=== PATIENT | male | born 1995 | race Caucasian/White ===

== ENCOUNTER 2018-07-11 00:06 | Emergency (ER) | payer OTHER ==
[2018-07-11 00:35] VITALS: BP 142/88; PULSE 76; TEMP 97.6; BMI 25.0
[2018-07-11] MEDS ORDERED: NAPROXEN 250 MG TABLET (FP) PO ONE (00:54)
[2018-07-11] MEDS ORDERED: CYCLOBENZAPRINE HCL 5 MG TABLET PO ONE (00:54)
[2018-07-11] MEDS ORDERED: NAPROXEN 500 MG TABLET (FP) ONE (00:57)
[2018-07-11] MEDS ORDERED: CYCLOBENZAPRINE HCL 10 MG TABLET (FP) ONE (00:58)
[2018-07-11] MEDS ORDERED: NAPROXEN 500 MG TABLET (FP) PO ONE (01:00)
[2018-07-11] MEDS ORDERED: CYCLOBENZAPRINE HCL 10 MG TABLET (FP) PO ONE (01:00)
--- NOTE | 2018-07-11 01:13 | PDOC ---
History of Present Illness - General Chief Complaint: Back Pain Stated Complaint: LOWER BACK PAIN Time Seen by Provider: 07/11/18 00:15 History Source: Patient Exam Limitations: No Limitations - History of Present Illness Initial Comments: 07/11/18 01:09 22 y/o male came to hospital because of pain in lower back which started after lifting weight in gym. pain radiates to right buttock, no numbness or tingling. Denies urine and fecal incontinence. Past History - Past Medical History Allergies/Adverse Reactions: Allergies Allergy/AdvReac Type Severity Reaction Status Date / Time No Known Allergies Allergy Verified 07/11/18 00:32 Home Medications: Ambulatory Orders Albuterol Sulfate Inhaler - [Ventolin HFA Inhaler -] 2 inh PO Q4H #1 inh Fexofenadine HCl [Merly] 180 mg PO DAILY #15 tablet 02/23/15 Ibuprofen [Motrin -] 600 mg PO Q6H PRN #18 tablet 02/23/15 Ketotifen Fumarate [Zaditor] 5 ml OU Q12H #1 drops 02/23/15 Cyclobenzaprine HCl [Flexeril -] 5 mg PO BID #7 tablet 07/11/18 Lidocaine 5% Patch [Lidoderm -] 1 patch TP DAILY #7 patch 07/11/18 Naproxen 250 mg PO BID #7 tablet 07/11/18 Asthma: Yes COPD: No - Immunization History Immunization Up to Date: Yes - Suicide/Smoking/Psychosocial Hx Smoking History: Never smoked Have you smoked in the past 12 months: No Information on smoking cessation initiated: No Hx Alcohol Use: No Drug/Substance Use Hx: No Substance Use Type: None *Physical Exam - Vital Signs Last Vital Signs Temp Pulse Resp BP Pulse Ox 97.6 F 76 20 142/88 99 07/11/18 00:10 07/11/18 00:10 07/11/18 00:10 07/11/18 00:10 07/11/18 00:10 - Physical Exam General Appearance: Yes: Appropriately Dressed Neck: positive: Supple. negative: Tender Respiratory/Chest: positive: Lungs Clear, Normal Breath Sounds, Respiratory Distress, Accessory Muscle Use Cardiovascular: positive: Regular Rhythm, Regular Rate Gastrointestinal/Abdominal: positive: Soft. 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, Fully Oriented, Normal Mood/Affect , Normal Response, Motor Strength 02/27 ED Treatment Course - RADIOLOGY Radiology Studies Ordered: Category Date Time Status SPINE-LUMBAR SACRAL [RAD] Stat Radiology 07/11/18 00:52 Ordered - Medications Given in the ED: ED Medications Discontinued Medications Generic Name Dose Route Start Last Admin Trade Name Gary PRN Reason Stop Dose Admin Cyclobenzaprine HCl 5 mg 07/11/18 01:00 07/11/18 01:00 Flexeril - PO 07/11/18 01:01 5 mg ONCE ONE Administration Naproxen 250 mg 07/11/18 01:00 07/11/18 01:00 Naprosyn - PO 07/11/18 01:01 250 mg ONCE ONE Administration Medical Decision Making - Medical Decision Making 07/11/18 01:33 22 y/o male came to hospital because of pain in lower back which started after lifting weight in gym. pain radiates to right buttock, no numbness or tingling. Denies urine and fecal incontinence. we will Xray spine' we will give him naproxen and flexril. 07/11/18 03:03 xray reviewed no fracture. we will dc him home. plan discussed with dr boyer. we will give him flexril, naproxen and lidocain patch. advise not to lift heavy weight. *DC/Admit/Observation/Transfer Diagnosis at time of Disposition: Back pain Qualifiers: Back pain location: low back pain Chronicity: acute Back pain laterality: right Sciatica presence: unspecified whether sciatica present Qualified Code(s) : M54.5 - Low back pain - Discharge Dispostion Disposition: HOME Condition at time of disposition: Stable Decision to Admit order: No - Prescriptions Prescriptions: Cyclobenzaprine HCl [Flexeril -] 5 mg PO BID #7 tablet Lidocaine 5% Patch [Lidoderm -] 1 patch TP DAILY #7 patch Naproxen 250 mg PO BID #7 tablet - Referrals Referrals: Dolores Parnell MD [Primary Care Provider] - - Patient Instructions Additional Instructions: follow up with your pcp. take medicines as prescribed. Avoid lifting heavy weight. If pain gets worse go to nearest er. - Post Discharge Activity
--- NOTE | 2018-07-11 02:29 | PDOC ---
Attending Attestation - Resident Resident Name: HarperCari dolanank - ED Attending Attestation I have performed the following: I have examined & evaluated the patient, The case was reviewed & discussed with the resident, I agree w/resident's findings & plan, Exceptions are as noted - HPI HPI: 07/11/18 00:46 22y M no pmhx presents with lower abck pain. pt ntose he was at the gym lifting when he had some mild lower back pain. pt took OTC meds and a lidoderm patch with mild improvement but presents due to still having mild discomfort. no associatd numbness/tingling/weakness urinary or bowel incontinence. no fever/ chills. on exam pt wll appaering, no distress, non toxic back: no focal midline tenderness, minimal paraspanal tendenress will ck xray anticipate dc with pmd fu - Physicial Exam PE: 07/11/18 22:15 louisa gastelum - Medical Decision Making 07/11/18 22:15 see above
== END 2018-07-11 03:14 | disposition home or self-care (01) ==
LOC: JER 00:06
DX: M54.5 Low back pain (principal)
CPT/HCPCS: 72100-TC-FY; 99283-25

== ENCOUNTER 2019-02-15 15:04 | Emergency (ER) | payer OTHER ==
[2019-02-15 15:11] VITALS: BP 141/99; PULSE 86; TEMP 98.4; BMI 26.6
--- NOTE | 2019-02-15 15:11 | PDOC ---
Rapid Medical Evaluation Chief Complaint: Respiratory Time Seen by Provider: 02/15/19 15:10 Medical Evaluation: Allergies Allergy/AdvReac Type Severity Reaction Status Date / Time No Known Allergies Allergy Verified 07/11/18 00:32 02/15/19 15:10 I did a brief in person evaluation on this patient. CC: Cough HPI: Pt is a 23 YO male who states he has had a cough x 3 days. PE: Skin: Clear Lungs: Clear Heart:RRR MS: Moves all extremities without difficulty Neuro: alert Psych: appropriate affect. Pt will proceed to [facility] for further evaluation. Discharge Disposition - Diagnosis Cough - Referrals - Patient Instructions - Post Discharge Activity
--- NOTE | 2019-02-15 15:28 | PDOC ---
History of Present Illness - General Chief Complaint: Respiratory Stated Complaint: COLD SYMPTOMS Time Seen by Provider: 02/15/19 15:10 - History of Present Illness Initial Comments: 02/15/19 15:26 23-year-old male without comorbidities presents for 3 days of nasal congestion itchy eyes and runny nose without systemic symptoms Past History - Past Medical History Allergies/Adverse Reactions: Allergies Allergy/AdvReac Type Severity Reaction Status Date / Time No Known Allergies Allergy Verified 07/11/18 00:32 Home Medications: Ambulatory Orders Fexofenadine HCl [Merly] 180 mg PO DAILY #15 tablet 02/23/15 Acetaminophen [Tylenol -] 650 mg PO Q4H 02/15/19 Budesonide [Rhinocort Allergy] 1 spray NS ONCE #1 spray.pump 02/15/19 Cetirizine HCl/Pseudoephedrine [Zyrtec-D Tablet] 1 each PO DAILY #30 tab.er.12h 02/15/19 Olopatadine HCl [Pataday] 1 drop OU DAILY #1 bottle 02/15/19 Asthma: Yes COPD: No - Immunization History Immunization Up to Date: Yes - Suicide/Smoking/Psychosocial Hx Smoking History: Never smoked Have you smoked in the past 12 months: No Hx Alcohol Use: No Drug/Substance Use Hx: No Substance Use Type: None Review of Systems - Review of Systems Constitutional: No: Fever HEENTM: Yes: See HPI, Nose Congestion Respiratory: Yes: Cough *Physical Exam - Vital Signs Last Vital Signs Temp Pulse Resp BP Pulse Ox 98.4 F 86 18 141/99 98 02/15/19 15:10 02/15/19 15:10 02/15/19 15:10 02/15/19 15:10 02/15/19 15:10 - Physical Exam Comments: 02/15/19 15:26 HEAD: NC/AT EYES: Conjuntiva clear Ears: Canals and TM's normal NOSE: No d/c THROAT: Moist mucous membrances, oral pharanx clear, uvula midline NECK: Supple without adenopathy CARDIAC: S1 S2 LUNGS: CTA Full and Equal breath sounds ABDOMEN: Soft NT ND MS: Full ROM in all joints without edema NEUROLOGIC: No gross sensory or motor deficits, NVID SKIN: Normal color and temperature no lesions or rashes Medical Decision Making - Medical Decision Making 02/15/19 15:27 We'll treat seasonal ALLERGIES with antihistamine decongestant, antihistamine eyedrops and steroid all nasal spray follow-up with ENT *DC/Admit/Observation/Transfer Diagnosis at time of Disposition: Cough, Allergic rhinitis, Allergic conjunctivitis - Discharge Dispostion Disposition: HOME Condition at time of disposition: Stable Decision to Admit order: No - Prescriptions Prescriptions: Budesonide [Rhinocort Allergy] 1 spray NS ONCE #1 spray.pump Cetirizine HCl/Pseudoephedrine [Zyrtec-D Tablet] 1 each PO DAILY #30 tab.er.12h Olopatadine HCl [Pataday] 1 drop OU DAILY #1 bottle - Referrals Referrals: Derrick Lee MD [Staff Physician] - - Patient Instructions Printed Discharge Instructions: Allergic Rhinitis Additional Instructions: Return to the emergency room for worsening symptoms. Please use the medication as directed and follow-up with ear nose and throat doctor in 1-2 days for further evaluation and treatment options. - Post Discharge Activity
== END 2019-02-15 15:33 | disposition home or self-care (01) ==
LOC: JERFT 15:04
DX: J30.9 Allergic rhinitis, unspecified (principal); H10.33 Unspecified acute conjunctivitis, bilateral
CPT/HCPCS: 99281-25

== ENCOUNTER 2019-06-25 11:56 | Day surgery (SDC) | payer OTHER ==
[2019-06-25 12:16] VITALS: BMI 24.2
--- NOTE | 2019-06-25 12:53 | PDOC ---
History of Present Illness - General Chief Complaint: Pain Stated Complaint: ABD PAIN Time Seen by Provider: 06/25/19 12:50 History Source: Patient Exam Limitations: No Limitations - History of Present Illness Initial Comments: Mani Canales is a 23 yo M w a hx of asthma and allergic rhinitis who presents to the [facility] ER with 2 days of RLQ abdominal pain. The patient states that yesterday at 10 am he began feeling a sharp sensation in his RLQ with mild radiation to his epigastric region. He rates the pain as 4 to 6 out of 10. The pain has not gotten worse since yesterday but the patient is concerned that he might have appendicitis. The pain is worse when the patient pushes on his lower abdomen, worse when he runs, and worse when he walks up stairs. He had a normal bowel movement yesterday. Patient states he has been peeing more frequently than usual and states he thinks his urine might have an abnormal odor. Patient has not taken any medications for his pain. Patient is sexually active with one female and does not use protection. He states he was tested for STD's 3 months ago which was negative. He states he has not had any new partners since. Patient denies any nausea, vomiting, diarrhea, or constipation. Patient denies any fevers or chills. PCP: Dolores Parnell PSH: None reported Social Hx: Denies smoking, drinking, or other substance usage. Allergies: Seasonal, NKDA Past History - Past Medical History Allergies/Adverse Reactions: Allergies Allergy/AdvReac Type Severity Reaction Status Date / Time No Known Allergies Allergy Verified 07/11/18 00:32 Home Medications: Ambulatory Orders Fexofenadine HCl [Merly] 180 mg PO DAILY #15 tablet 02/23/15 Acetaminophen [Tylenol -] 650 mg PO Q4H 02/15/19 Budesonide [Rhinocort Allergy] 1 spray NS ONCE #1 spray.pump 02/15/19 Cetirizine HCl/Pseudoephedrine [Zyrtec-D Tablet] 1 each PO DAILY #30 tab.er.12h 02/15/19 Olopatadine HCl [Pataday] 1 drop OU DAILY #1 bottle 02/15/19 Asthma: Yes COPD: No - Immunization History Immunization Up to Date: Yes - Suicide/Smoking/Psychosocial Hx Smoking History: Never smoked Have you smoked in the past 12 months: No Hx Alcohol Use: No Drug/Substance Use Hx: No Substance Use Type: None Review of Systems - Review of Systems Able to Perform ROS?: Yes Comments:: CONSTITUTIONAL: Absent: fever, chills, diaphoresis, generalized weakness, malaise, loss of appetite HEENT: Absent: rhinorrhea, nasal congestion, throat pain, throat swelling, difficulty swallowing, mouth swelling, ear pain, eye pain, visual Changes CARDIOVASCULAR: Absent: chest pain, syncope, palpitations, irregular heart rate, lightheadedness , peripheral edema RESPIRATORY: Absent: cough, shortness of breath, dyspnea with exertion, orthopnea, wheezing, stridor, hemoptysis GASTROINTESTINAL: Present: Abdominal pain Absent: abdominal distension, nausea, vomiting, diarrhea, constipation, melena, hematochezia GENITOURINARY: Present: frequency Absent: dysuria, urgency, hesitancy, hematuria, flank pain, genital pain MUSCULOSKELETAL: Absent: myalgia, arthralgia, joint swelling SKIN: Absent: rash, itching, pallor HEMATOLOGIC/IMMUNOLOGIC: Absent: easy bleeding, easy bruising, lymphadenopathy, frequent infections ENDOCRINE: Absent: unexplained weight gain, unexplained weight loss, heat intolerance, cold intolerance NEUROLOGIC: Absent: headache, focal weakness or paresthesias, dizziness, unsteady gait, seizure, mental status changes, bladder or bowel incontinence PSYCHIATRIC: Absent: anxiety, depression, suicidal or homicidal ideation, hallucinations. *Physical Exam - Vital Signs Last Vital Signs Temp Pulse Resp BP Pulse Ox 98.3 F 64 20 147/84 99 06/25/19 12:14 06/25/19 12:14 06/25/19 12:14 06/25/19 12:14 06/25/19 12:14 - Physical Exam Comments: GENERAL: Well developed, well nourished. Awake and alert. No acute distress. HEENT: Normocephalic, atraumatic. PERRLA, EOMI. No conjunctival pallor. Sclera are non- icteric. Moist mucous membranes. Oropharynx is clear. NECK: Supple. Full ROM. No JVD. CARDIOVASCULAR: Regular rate and rhythm. No murmurs, rubs, or gallops. Distal pulses are 2+ and symmetric. PULMONARY: No evidence of respiratory distress. Lungs clear to auscultation bilaterally. No wheezing, rales or rhonchi. ABDOMINAL: There is focal point tenderness immediately to the right of the umbilicus. There is minimal RLQ TTP. There is no RUQ TTP and no suprapubic or watson- umbilical ttp. The Abdomen is soft and non-distended with normal bowel sounds. There is no rebound or guarding. MUSCULOSKELETAL Normal range of motion at all joints. No bony deformities or tenderness. No CVA tenderness. EXTREMITIES: No cyanosis. No clubbing. No edema. No calf tenderness. SKIN: Warm and dry. Normal capillary refill. No rashes. No jaundice. NEUROLOGICAL: Alert, awake, appropriate. Normal speech. Gait is normal without ataxia. PSYCHIATRIC: Cooperative. Good eye contact. Appropriate mood and affect. Male Genitalia: positive: normal genitalia, hernia (Possible abdominal hernia). negative: discharge, testicular tenderness, testicular mass, epididymus tender , inguinal hernia, CVAT ED Treatment Course - LABORATORY CBC & Chemistry Diagram: 06/25/19 13:30 06/25/19 13:30 - RADIOLOGY Radiograph Interpretation: CTAP: Abdomen and pelvis CT with contrast Clinical information: evaluate for appendicitis, hernia Multiplanar imaging was performed following the intravenous administration of nonionic contrast. Enteric contrast was not administered. No prior imaging studies are available at this facility for direct comparison. There is mild fluid distention of the appendiceal lumen with associated minimal to mild periappendiceal soft tissue stranding consistent with acute appendicitis. Note is also made of minimal to mild concentric appendiceal wall thickening. No abscess or phlegmon is noted. No evidence of pneumoperitoneum, free intraperitoneal fluid or bowel obstruction. There is no gross noncontrast small bowel pathology. There is no discrete abdominal wall hernia. The liver, spleen, pancreas, gallbladder, adrenal glands and kidneys demonstrate no discrete abnormality. The aorta appears unremarkable in caliber. No definite lymphadenopathy is seen. There is no CT evidence of pelvic pathology. The visualized osseous structures demonstrate no obvious CT evidence of acute abnormality. Impression: Acute appendicitis is identified as noted above. No abscess or phlegmon is identified. Medical Decision Making - Medical Decision Making Mani Canales is a 23 yo M w a hx of asthma and allergic rhinitis who presents to the [facility] ER with 2 days of RLQ abdominal pain. The patient states that yesterday at 10 am he began feeling a sharp sensation in his RLQ with mild radiation to his epigastric region. He rates the pain as 4 to 6 out of 10. The pain has not gotten worse since yesterday but the patient is concerned that he might have appendicitis. The pain is worse when the patient pushes on his lower abdomen, worse when he runs, and worse when he walks up stairs. He had a normal bowel movement yesterday. Patient states he has been peeing more frequently than usual and states he thinks his urine might have an abnormal odor. Patient has not taken any medications for his pain. Patient is sexually active with one female and does not use protection. He states he was tested for STD's 3 months ago which was negative. He states he has not had any new partners since. Vital Signs Temp Pulse Resp BP Pulse Ox 98.3 F 64 20 147/84 99 06/25/19 12:14 06/25/19 12:14 06/25/19 12:14 06/25/19 12:14 06/25/19 12:14 DDx IBNLT: Appendicitis, UTI/pylo, testicular pain, GERD, Hernia, electrolyte/ metabolic disturbance, renal colic Plan: Labs, Urine, IV hydration, analgesia, GI cocktail, re-assess. Labs: Unremarkable Urine: Normal Re-assessment: Patient still has mild RLQ abdominal TTP. - Will obtain CTAP w IV contrast CTAP: Suggests acute appendicitis - Will consult surgery, make NPO, IV hydrate, and admit to hospital - Cefoxitin for Abx coverage Surgical Consult: Dr. Jay - Aware of patient and will follow. Disposition: Admit to [facility] Dr. Jay for Appendectomy *DC/Admit/Observation/Transfer Diagnosis at time of Disposition: Appendicitis Qualifiers: Appendicitis type: acute appendicitis Acute appendicitis type: unspecified acute appendicitis type Qualified Code(s): K35.80 - Unspecified acute appendicitis - Discharge Dispostion Condition at time of disposition: Stable Decision to Admit order: Yes - Referrals Referrals: Dolores Parnell MD [Primary Care Provider] - - Patient Instructions - Post Discharge Activity
[2019-06-25] MEDS ORDERED: SODIUM CHLORIDE 1,000 ML IV STA (13:05)
[2019-06-25] MEDS ORDERED: FAMOTIDINE 20 MG/50 ML IVPB 20 MG/50 ML MG IVPB ONE ×2 (13:05→13:43)
[2019-06-25] MEDS ORDERED: ACETAMINOPHEN 1000 MG/100 ML VIAL (NON FORMULARY) IVPB ONE (13:05)
[2019-06-25] MEDS ORDERED: ACETAMINOPHEN 325 MG TABLET (FP) PO ONE (13:10)
[2019-06-25] MEDS ORDERED: MAG HYDROX/AL HYDROX/SIMETH 30 ML UNIT-DOSE CUP PO ONE (13:10)
[2019-06-25] MEDS ORDERED: ACETAMINOPHEN 325 MG TABLET (FP) ONE (13:40)
[2019-06-25] MEDS ORDERED: MAG HYDROX/AL HYDROX/SIMETH 30 ML UNIT-DOSE CUP ONE (13:40)
--- NOTE | 2019-06-25 13:40 | PDOC ---
Documentation entered by Kimberly Tomas SCRIBE, acting as scribe for Dianelys Dozier DO. Dianelys Dozier, DO: This documentation has been prepared by the Genoveva flowers Adrianna, SCRIBE, under my direction and personally reviewed by me in its entirety. I confirm that the documentation accurately reflects all work, treatment, procedures, and medical decision making performed by me. Attending Attestation - Resident Resident Name: Art Courtney - ED Attending Attestation I have performed the following: I have examined & evaluated the patient, The case was reviewed & discussed with the resident, I agree w/resident's findings & plan, Exceptions are as noted - HPI HPI: The patient is a 23 year old male, with a significant PMH of asthma and allergic rhinitis, who presents to the ED for evaluation of abdominal pain for 2 days. Patient reports sharp RLQ pain that radiates to his epigastrium, which is a 4-6/10 in nature. Pain is exacerbated with running or ascending stairs. He additionary reports increased urinary frequency, with a seemingly abnormal odor. LBM was yesterday and normal. He admits to being sexually active with one partner without any protection. Denies fever, chills, nausea, vomit, diarrhea, or constipation. Allergies: Seasonal. NKDA Surgical History: None reported Social History: Denies EtOH, tobacco, or illicit drug use PCP: Dr. Parnell - Physicial Exam PE: Constitutional: Awake, alert, oriented. No acute distress. Cardiovascular: Regular rate. Regular rhythm. S1, S2 regular. Distal pulses are 2+ and symmetric. Pulmonary/Chest: No evidence of respiratory distress. Clear to auscultation bilaterally No wheezing, rales or rhonchi. Abdominal: Soft and nondistended. There is no tenderness. No rebound, guarding or rigidity. No organomegaly. No palpable masses. Good bowel sounds. Back: No CVA tenderness. Musculoskeletal: +RLQ tenderness to No edema. No cyanosis. No clubbing. Full range of motion in all extremities. Nocalf tenderness. Radial/pedal pulses are intact and 2+ bilaterally. Negative rovsings, PSOAS, and obturator sign. Neurological: Alert and oriented. Cranial nerves II-XII are grossly intact. No focal neuro deficits. Ambulatory in the ED with a very steady gait. Psychiatric: Good eye contact. Normal interaction, affect and behavior. - Medical Decision Making 06/25/19 13:35 I, Dr. Dianelys Dozier, DO, attest that this document has been prepared under my direction and personally reviewed by me in its entirety. I further attest, that it accurately reflects all work, treatment, procedures and medical decision -making performed by me. 06/25/19 13:35 a/p: 23yo male with hx of asthma with RLQ pain since yesterday around 10a -no assoc n/v/d -last bm was this AM around 2am - normal -no f/c -ttp over mcburneys -no testicular, back or penile pain or discharge -also with dysuria -will send labs, bedside focused pocus for appy -ua -pt is nontoxic in appearance 06/25/19 14:[address] 06/25/19 15:08 ua neg 06/25/19 16:30 called by radiology - pt with acute appendicitis call placed to Dr. Jay npo ivf abx 06/25/19 17:[address] Jya for sx
[2019-06-25 13:54] LABS: BASO % 0.6 % (0-2.0); EOS % 0.5 % (0-4.5); HEMATOCRIT 44.6 % (35.4-49); HEMOGLOBIN 14.8 GM/dL (11.7-16.9); LYMPH % 20.2 % (8-40); MCH 30.3 pg (25.7-33.7); MCHC 33.1 g/dl (32.0-35.9); MEAN CELL VOLUME 91.4 fl (80-96); MEAN PLT VOLUME 9.1 fl (7.5-11.1); NEUT % 71.7 % (42.8-82.8); PLATELET COUNT 248 K/MM3 (134-434); RBC 4.88 M/mm3 (4.00-5.60); RDW 13.5 % (11.9-15.9); WHITE BLOOD COUNT 8.5 K/mm3 (4.0-10.0)
[2019-06-25 14:16] LABS: ALBUMIN 4.2 g/dl (3.4-5.0); BILIRUBIN,TOTAL 0.8 mg/dL (0.2-1); BLOOD UREA NITROGEN 11.2 mg/dL (7-18); CALCIUM 9.4 mg/dL (8.5-10.1); CREATININE 0.9 mg/dL (0.55-1.3); MAGNESIUM 2.2 mg/dL (1.8-2.4); PHOSPHOROUS 3.3 mg/dL (2.5-4.9); POTASSIUM 4.1 mmol/L (3.5-5.1); TOT PROT 8.2 g/dl (6.4-8.2)
[2019-06-25 15:14] LABS: PH,URINE 6.5 (5.0-8.0); URINE APPEARANCE Clear; URINE BILIRUBIN Negative (NEGATIVE); URINE COLOR Yellow; URINE GLUCOSE (UA) Negative (NEGATIVE); URINE KETONE Negative (NEGATIVE); URINE LEUK ESTERASE Negative (NEGATIVE); URINE NITRITE Negative (NEGATIVE); URINE PROTEIN Negative (NEGATIVE); URINE UROBILINOGEN 0.2 mg/dL (0.2-1.0)
[2019-06-25] MEDS ORDERED: DEXTROSE 5%-LACTATED RINGERS 1,000 ML IV SCH (16:45)
[2019-06-25] MEDS ORDERED: CEFOXITIN SODIUM 1 GM in DEXTROSE 5%-WATER - 100 ML IVPB ONE (17:40)
--- NOTE | 2019-06-25 19:12 | HP ---
Admitting History and Physical - Primary Care Physician PCP: Dolores Parnell - Admission Chief Complaint: RLQ pain History of Present Illness: 23yo healthy M presents with RLQ pain "pinching" since 4pm yesterday, without radiation, but which did not go away, prompting ER visit today. He denies F/C, N /V, urinary complaints, change in bowel habits (last normal BM this morning), or anorexia. Last po was last night. Did not take anything for the pain. In the ER, he is afebrile with normal wbc, and CT shows acute appendicitis without abscess or perforation. He has received IV fluids and Cefoxitin is ordered. He is seen and examined in ER holding with family present (spouse and parents). He is feeling better after Tylenol and GI cocktail, but pain is still present, though mild. He is sitting on edge of stretcher and moves well. Uses albuterol inhaler for asthma infrequently, last about 2 months ago. No other PMH or PSH. 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 [employer] Home Medications - Allergies Allergies/Adverse Reactions: Allergies Allergy/AdvReac Type Severity Reaction Status Date / Time No Known Allergies Allergy Verified 07/11/18 00:32 - Home Medications Home Medications: Ambulatory Orders Acetaminophen [Tylenol -] 500 mg PO Q4H PRN 02/15/19 Albuterol Sulfate Inhaler - [Ventolin Hfa Inhaler -] 2 inh PO Q6H PRN 06/25/19 Family Disease History - Family Disease History Family History: Unremarkable (noncontributory) Review of Systems - Review of Systems Constitutional: denies: Chills, Fever Eyes: denies: Blurred Vision, Recent Change in Vision HENT: denies: Difficult Swallowing, Throat Pain Neck: denies: Pain on Movement, Stiffness Cardiovascular: denies: Chest Pain, Palpitations Respiratory: denies: Cough, SOB Gastrointestinal: reports: Abdominal Pain. denies: Constipation, Diarrhea, Nausea, Vomiting Genitourinary: denies: Burning, Dysuria Musculoskeletal: denies: Back Pain, Joint Pain, Muscle Pain Integumentary: denies: Change in Color, Rash Neurological: denies: Dizziness, Headache, Unsteady Gait Psychiatric: denies: Anxiety, Depression Physical Examination Vital Signs: Vital Signs Temperature 98.3 F 06/25/19 12:14 Pulse Rate 64 06/25/19 12:14 Respiratory Rate 20 06/25/19 12:14 Blood Pressure 147/84 06/25/19 12:14 O2 Sat by Pulse Oximetry (%) 99 06/25/19 12:14 Constitutional: Yes: Well Nourished, No Distress, Calm Eyes: Yes: Conjunctiva Clear, EOM Intact HENT: Yes: Atraumatic, Normocephalic Neck: Yes: Supple, Trachea Midline Cardiovascular: Yes: Regular Rate and Rhythm Respiratory: Yes: Regular, CTA Bilaterally Gastrointestinal: Yes: Normal Bowel Sounds, Soft, Tenderness (focal, mild, RLQ; no R/G). No: Distention, Tenderness, Rebound ...Rectal Exam: Yes: Deferred Renal/: No: CVA Tenderness - Left, CVA Tenderness - Right Musculoskeletal: No: Back Pain, Joint Stiffness, Joint Swelling Extremities: No: Cool, Cyanosis Edema: No Peripheral Pulses WNL: Yes Integumentary: No: Jaundice, Rash Neurological: Yes: Alert, Oriented Psychiatric: Yes: Alert, Oriented Labs: CBC, BMP 06/25/19 13:30 06/25/19 13:30 CMP Sodium 138 mmol/L (136-145) 06/25/19 13:30 Potassium 4.1 mmol/L (3.5-5.1) 06/25/19 13:30 Chloride 102 mmol/L (98-107) 06/25/19 13:30 Carbon Dioxide 30 mmol/L (21-32) 06/25/19 13:30 Anion Gap 6 MMOL/L (8-16) L 06/25/19 13:30 BUN 11.2 mg/dL (7-18) 06/25/19 13:30 Creatinine 0.9 mg/dL (0.55-1.3) 06/25/19 13:30 Est GFR (CKD-EPI)AfAm 137.10 06/25/19 13:30 Est GFR (CKD-EPI)NonAf 118.29 06/25/19 13:30 Random Glucose 87 mg/dL (74-106) 06/25/19 13:30 Lactic Acid 0.6 mmol/L (0.4-2.0) 06/25/19 13:30 Calcium 9.4 mg/dL (8.5-10.1) 06/25/19 13:30 Phosphorus 3.3 mg/dL (2.5-4.9) 06/25/19 13:30 Magnesium 2.2 mg/dL (1.8-2.4) 06/25/19 13:30 Total Bilirubin 0.8 mg/dL (0.2-1) 06/25/19 13:30 AST 19 U/L (15-37) 06/25/19 13:30 ALT 13 U/L (13-61) 06/25/19 13:30 Alkaline Phosphatase 96 U/L (45-117) 06/25/19 13:30 C-Reactive Protein 0.7 MG/DL (0.00-0.3) H 06/25/19 13:30 Total Protein 8.2 g/dl (6.4-8.2) 06/25/19 13:30 Albumin 4.2 g/dl (3.4-5.0) 06/25/19 13:30 Lipase 114 U/L (73-393) 06/25/19 13:30 Urine Test Results Urine Color Yellow 06/25/19 13:30 Urine Appearance Clear 06/25/19 13:30 Urine pH 6.5 (5.0-8.0) 06/25/19 13:30 Ur Specific [place] 1.025 (1.010-1.035) 06/25/19 13:30 Urine Protein Negative (NEGATIVE) 06/25/19 13:30 Urine Glucose (UA) Negative (NEGATIVE) 06/25/19 13:30 Urine Ketones Negative (NEGATIVE) 06/25/19 13:30 Urine Blood Negative (NEGATIVE) 06/25/19 13:30 Urine Nitrite Negative (NEGATIVE) 06/25/19 13:30 Urine Bilirubin Negative (NEGATIVE) 06/25/19 13:30 Ur Leukocyte Esterase Negative (NEGATIVE) 06/25/19 13:30 Imaging - Results Cat Scan: Report Reviewed, Image Reviewed (images reviewed - appendix enlarged with mild inflammatory changes) Problem List - Problems (1) Appendicitis Assessment/Plan: admit 23H/satellite to surgery NPO until postop pain meds prn - nonnarcotics first line DVT prophylaxis periop antibiotics Discussed with patient risks, benefits and alternatives of laparoscopic possible open appendectomy, including but not limited to bleeding, infection, injury to adjacent structures, intestinal leak or injury, intraabdominal abscess , incisional hernia, need for further procedures; alternatives include antibiotics, delayed or no surgery - risks of this include failure of nonoperative therapy, perforation, sepsis, recurrence. Patient desires to proceed with operation - will take to OR for above. Informed consent signed for same. resume po postop anticipate likely d/c home tomorrow Code(s): K37 - UNSPECIFIED APPENDICITIS Qualifiers: Appendicitis type: acute appendicitis Acute appendicitis type: other Qualified Code(s): K35.890 - Other acute appendicitis without perforation or gangrene; K35.89 - Other acute appendicitis (2) RLQ abdominal pain Code(s): R10.31 - RIGHT LOWER QUADRANT PAIN (3) Asthma Assessment/Plan: albuterol prn Code(s): J45.909 - UNSPECIFIED ASTHMA, UNCOMPLICATED Qualifiers: Asthma severity: mild Asthma persistence: intermittent Asthma complication type: uncomplicated Qualified Code(s): J45.20 - Mild intermittent asthma, uncomplicated
[2019-06-25] MEDS ORDERED: CEFOXITIN SODIUM 1 GM in DEXTROSE 5%-WATER 100 ML IVPB ONE (19:15)
[2019-06-25] MEDS ORDERED: ALBUTEROL SO4 8 GM HFA INHALER IH PRN ×3 (19:26→22:35)
[2019-06-25] MEDS ORDERED: LACTATED RINGERS SOLUTION 1,000 ML/1,000 ML INFUS.BAG IV SCH ×3 (19:30→22:35)
[2019-06-25] MEDS ORDERED: BACITRACIN 15 GM TUBE TOPICAL OINTMENT ONE (19:58)
[2019-06-25] MEDS ORDERED: oxyCODONE HCL 5 MG TABLET PO PRN ×2 (20:00)
[2019-06-25] MEDS ORDERED: ONDANSETRON 4 MG/2 ML VIAL IVPUSH PRN ×2 (20:00→22:35)
[2019-06-25] MEDS ORDERED: ACETAMINOPHEN INJECTION 100 ML IVPB ONE (20:05)
[2019-06-25] MEDS ORDERED: fentaNYL CITRATE 250 MCG/5 ML VIAL ONE (20:07)
[2019-06-25] MEDS ORDERED: PROPOFOL 20 ML ONE ×3 (20:08)
[2019-06-25] MEDS ORDERED: SUCCINYLCHOLINE CHLORIDE 200 MG/10 ML SYRINGE ONE (20:08)
[2019-06-25] MEDS ORDERED: EPHEDRINE SULFATE/0.9% NACL/PF 50 MG/10 ML SYRINGE NR ONE (20:08)
[2019-06-25] MEDS ORDERED: ROCURONIUM BROMIDE 50 MG/5 ML SYRINGE ONE (20:08)
[2019-06-25] MEDS ORDERED: CEFOXITIN SODIUM 1 GM IVPB ONE (20:19)
[2019-06-25] MEDS ORDERED: cefOXitin SODIUM 1 GM VIAL (RESTRICTED TO ID) IVPB ONE (20:40)
[2019-06-25] MEDS ORDERED: NEOSTIGMINE METHYLSULFATE 0.5 MG/1 ML - 10 ML MDV ONE (20:59)
[2019-06-25] MEDS ORDERED: ONDANSETRON 4 MG/2 ML VIAL ONE ×2 (21:00→21:40)
[2019-06-25] MEDS ORDERED: DEXAMETHASONE SOD PHOSPHATE 4 MG/1 ML VIAL ONE (21:00)
[2019-06-25] MEDS ORDERED: KETOROLAC TROMETHAMINE 30 MG/1 ML VIAL ONE (21:00)
[2019-06-25] MEDS ORDERED: GLYCOPYRROLATE 0.2 MG/1 ML VIAL ONE ×2 (21:02→21:37)
[2019-06-25] MEDS ORDERED: BUPIVACAINE HCL/PF 0.5% (5 MG/ML) 30 ML VIAL IJ ONE (21:48)
[2019-06-25] MEDS ORDERED: BENZOIN TINCTURE SWABSTICK TP ONE (21:58)
--- NOTE | 2019-06-25 22:19 | OP ---
Operative Note - Note: Operative Date: 06/25/19 Pre-Operative Diagnosis: acute appendicitis Operation: laparoscopic appendectomy Findings: inflamed appendix, scant fluid in pelvis suctioned Post-Operative Diagnosis: Same as Pre-op Surgeon: Ang Jay Anesthesiologist/CREDIT RISK MODELER: Suze Thacker Anesthesia: General, Local (10ml 0.5% marcaine) Specimens Removed: appendix to pathology Estimated Blood Loss (mls): 5 Drains & Tubes with Location: Pelayo out at end of case Drains, Volume Out (mls): 1,000 (UOP) Fluid Volume Replaced (mls): 1,500 (crystalloid) Operative Report Dictated: Yes
[2019-06-25] MEDS ORDERED: MEPERIDINE HCL 25 MG/ML VIAL IVPUSH ONE (22:43)
[2019-06-25 23:37] LABS: INR 1.16 (0.83-1.09); PROTHROMBIN TIME (PATIENT) 13.7 SEC (9.7-13.0)
[2019-06-25 23:39] LABS: ACTIVATED PTT 37.7 SECONDS (25.2-36.5)
[2019-06-26] MEDS ORDERED: IBUPROFEN 600 MG TABLET (FP) PO SCH (03:00)
[2019-06-26] MEDS: IBUPROFEN 600 MG TABLET (FP) PO SCH ×2 (03:03→09:02)
[2019-06-26] MEDS ORDERED: ACETAMINOPHEN 325 MG TABLET (FP) PO SCH ×2 (06:00)
[2019-06-26] MEDS: ACETAMINOPHEN 325 MG TABLET (FP) PO SCH ×2 (06:27→12:25)
[2019-06-26 09:02] VITALS: BP 154/81; PULSE 90; TEMP 98.6
--- NOTE | 2019-06-26 13:38 | DS ---
Physical Examination Vital Signs: Vital Signs Temperature 98.6 F 06/26/19 09:01 Pulse Rate 90 06/26/19 09:01 Respiratory Rate 20 06/26/19 09:01 Blood Pressure 154/81 06/26/19 09:01 O2 Sat by Pulse Oximetry (%) 99 06/26/19 08:00 Findings/Remarks: Pt seen in [facility] with family, examined back in his room. He is ambulating well, tolerated breakfast and lunch, but notes feeling bloated and has some mild R shoulder discomfort, likely from diaphragmatic irritation. He has passed gas, but no BM yet. Using IS. Has a little RLQ pain still and some incisional tenderness, but overall feeling ok with alternating po nonnarcotics. No fevers. Constitutional: Yes: Well Nourished, No Distress, Calm Eyes: Yes: Conjunctiva Clear, EOM Intact HENT: Yes: Atraumatic, Normocephalic Cardiovascular: Yes: Regular Rate and Rhythm Respiratory: Yes: Regular, CTA Bilaterally Gastrointestinal: Yes: Normal Bowel Sounds, Soft, Distention (mild), Tenderness (mild RLQ and incisional, no rebound/guarding) Extremities: No: Cool, Cyanosis Integumentary: Yes: Incision (x3 dressed). No: Jaundice, Rash Wound/Incision: Yes: Steri Strips (under dressings), Dressing Dry and Intact (x3 ). No: Dressing Removed Neurological: Yes: Alert, Oriented Labs: no new labs Discharge Summary Reason For Visit: APPENDICITIS Current Active Problems Acute appendicitis without perforation, abscess or gangrene (Acute) Asthma (Acute) RLQ abdominal pain (Acute) Procedures: Principal: laparoscopic appendectomy Hospital Course: 23yo healthy M presented with RLQ pain since the afternoon prior, not associated with F/C, N/V or bowel changes. His wbc in ER was normal, but CT showed acute appendicitis, and he was focally tender in RLQ. He was given IV fluids and Cefoxitin and taken for laparoscopic appendectomy. Postoperatively, he is ambulating, voiding, tolerating diet, and pain is controlled with alternating tylenol and ibuprofen. His incisional dressings are clean and dry, and tenderness is appropriate. He is discharged home with lifting restrictions to f/u in 2 weeks. Time spent on discharge: 35 minutes Condition: Good - Instructions Diet, Activity, Other Instructions: Postoperative instructions: You had a laparoscopic appendectomy on 06/25/[address] Ang Jay of [facility]. Activity: Resume your usual activities gradually, but no heavy exertion or lifting more than 10-15 pounds for 1 month. Remove dressings 48 hours after surgery; sticky tapes underneath will fall off by themselves. You may shower daily once the outer dressings are off, just pat the incision areas dry. No bath or swimming until skin incisions have fully healed. Eat lightly at first, but advance to your usual diet as tolerated. Pain: For pain, you may use and alternate Tylenol (acetaminophen) 1-2 pills and/ or ibuprofen 200 mg (1-3 pills) every 6 hours each as needed; this means that you can take one OR the other at 3-hour intervals. Do not take more than 4000mg of acetaminophen in a day. Take medications as prescribed or indicated on the labeling. Follow-up: Call Dr. Jay's office at [phone] to make your postop appointment (Thursday in approximately 2 weeks after surgery). Clinic is held in the [facility] on the first floor of [facility]. Call the office if you have: * increasing pain not responsive to pain medication * fever of 101F or higher * vomiting * unusual or increasing bleeding or drainage from wounds * increasing redness or swelling at wound sites Also, see your primary medical doctor within 1-2 weeks. Referrals: Ang Jay MD [Staff Physician] - Dolores Parnell MD [Primary Care Provider] - Disposition: HOME - Home Medications Comprehensive Discharge Medication List: Ambulatory Orders Albuterol Sulfate Inhaler - [Ventolin HFA Inhaler -] 2 inh PO Q6H PRN 06/25/19 Acetaminophen [Tylenol .Regular Strength -] 500 mg PO Q6H PRN #0 tab 06/26/19 Ibuprofen [Motrin -] 600 mg PO Q6H tablet 06/26/19
--- NOTE | 2019-06-29 17:30 | PATH ---
Surgical Pathology Report Patient Name: MARÍA ELENA MENDOZA Med. Rec. #: [id number] /Age/Gender: 1995 (Age: 23) / M Account: [id number] Location: AMBULATORY SURG Taken: 06/25/2019 Received: 06/28/2019 Reported: 06/29/2019 Physicians: Ang Jay M.D. Specimen(s) Received APPENDIX Clinical History Acute appendicitis Final Diagnosis APPENDIX, LAPAROSCOPIC APPENDECTOMY: ACUTE APPENDICITIS. Electronically Signed Nadia Marie M.D. Gross Description Received in formalin, labeled "appendix," is a 7.5 x 0.6 cm. in length vermiform appendix with a stapled margin of resection and moderate attached fat. The serosa is focally hemorrhagic. Sectioning reveals a patent lumen containing brown fecalith. The wall of the appendix averages 0.2 cm. in thickness. Manager Environmental [employer] sections are submitted in one cassette. AE/06/29/2019 ebram/06/29/2019
--- NOTE | 2019-07-19 16:22 | OP ---
DATE OF OPERATION: 06/25/2019 PREOPERATIVE DIAGNOSIS: Acute appendicitis. POSTOPERATIVE DIAGNOSIS: Acute appendicitis. PROCEDURE: Laparoscopic appendectomy. SURGEON: Ang Jay MD ANESTHESIA: General endotracheal and local 10 mL of 0.5% Marcaine. ESTIMATED BLOOD LOSS: 5 mL. FLUIDS: 1500 mL of crystalloid. URINE OUTPUT: 1000 mL, with the Pelayo removed at the end of the case. SPECIMEN: Appendix to Pathology. FINDINGS: Inflamed appendix with scant fluid in the pelvis, which was suctioned. DISPOSITION: Stable and extubated to PACU. INDICATIONS FOR PROCEDURE: The patient is a 23-year-old healthy male who presented with right lower quadrant pain beginning a day prior without radiation, fever, chills, nausea, vomiting, change in urinary or bowel habits, or anorexia. In the emergency room he had a normal white blood cell count, but a CT showed acute appendicitis without abscess or perforation. He received IV fluids and IV antibiotics. Risks, benefits, and alternatives of laparoscopic, possible open appendectomy, were discussed with the patient, including but not limited to bleeding, infection, injury to adjacent structures, intestinal leak or injury, intraabdominal abscess, incisional hernia, need for further procedures, awake, alert alternatives including antibiotics with delayed or no surgery, and consequent risks of possible failure of nonoperative therapy, perforation, sepsis, and recurrence. The patient does desired to proceed with an operation, signed informed consent for the same, and is now brought to the OR for this procedure. OPERATIVE TECHNIQUE: The patient was brought to the operating room and laid supine in the operating table. Sequential compression devices were applied to bilateral lower extremities, and appropriate antibiotics given and continued in the preoperative period. After induction and intubation by anesthesia, a Pelayo catheter was placed in the patient's bladder under sterile conditions, which was removed at the end of the case. His lower abdomen was clipped of hair, prepped and draped in sterile fashion. A small infraumbilical incision was made with a scalpel and carried into subcutaneous tissue with electrocautery until the abdominal wall fascia was identified, scored, and elevated with Yuriy clamps. The peritoneum was entered bluntly with the tip of a clamp, and a fingertip inserted to ensure entry into the abdominal cavity and the absence of any underlying adhesions. A stay suture of 0 Vicryl in [id number] fashion was placed in the fascia for later closure, and the Mindy trocar introduced directly into the abdominal cavity, which was secured in place with the balloon. The abdomen was insufflated with carbon dioxide. The patient was placed in Trendelenburg position with the right side planed somewhat upward and the laparoscope inserted to inspect the abdominal cavity. Two additional 5-mm ports were placed in the suprapubic and left lower quadrant areas under direct vision. The camera was moved to the left lower quadrant port. Two graspers were introduced and the appendix was identified as being inflamed. It was elevated with one of the graspers and a [place] dissector used to create a window at the base of the appendix where it joined the cecum, such that a 45 purple load Endo LUCILA stapler could be used to take the appendix off of its cecal junction. The mesoappendix was then also taken with white load of the Endo LUCILA stapler. There was scant yellow fluid in the pelvis which was suctioned, and the operative field was also suctioned of local bloody fluid. There was no irrigation undertaken. The appendix was then placed in an EndoCatch bag, the suprapubic port removed under direct vision. The Mindy trocar with appendix in bag were then removed en bloc, and the camera and left lower quadrant port also withdrawn. The abdomen was exsufflated of the carbon dioxide. The specimen was passed off to be sent to Pathology, and the stay suture at the umbilicus tied to close the fascia. The patient was returned to neutral position. Local anesthetic was injected into all of the wounds. Hemostasis was achieved in the port sites with electrocautery where needed and the skin was closed with 4-0 Vicryl subcuticular sutures, including a running at the umbilicus. Benzoin and Steri-Strips were placed over each incision, which were then dressed with gauze and Tegaderm. The Pelayo catheter was then removed from the patient's bladder. Counts were correct at the end of the procedure. The patient was then awakened and extubated by Anesthesia and moved back to a stretcher and taken to the recovery room in stable condition, having tolerated the procedure well. Ang Jay M.D. [id number]
== END 2019-06-26 14:06 | disposition home or self-care (01) ==
LOC: JER 11:56 → JASUSAT 16:32 → J6S 23:45 → JASUSAT 06-26 14:06
PROVIDERS: ATTEND Surgery
PROC: 0DTJ4ZZ Resection of Appendix, Percutaneous Endoscopic Approach (ICD-10-PCS; principal; 2019-06-25 20:55)
DX: K35.80 Unspecified acute appendicitis (principal)
CPT/HCPCS: 36415; 74177-TC; 80053; 81003; 83605; 83690; 83735; 84100; 85025; 85610; 85730; 86140; 86850; 86900; 86901; 87086; 87491; 87591; 88304-TC; 94760; 99284-25; J0131; J7030

== ENCOUNTER 2019-06-29 20:07 | Emergency (ER) | payer OTHER ==
--- NOTE | 2019-06-29 20:31 | PDOC ---
Rapid Medical Evaluation Time Seen by Provider: 06/29/19 20:30 Medical Evaluation: Allergies Allergy/AdvReac Type Severity Reaction Status Date / Time No Known Allergies Allergy Verified 07/11/18 00:32 06/29/19 20:31 I have performed a brief in-person evaluation of this patient. The patient presents with a chief complaint of: abd pain, s/p appendectomy this past thursday Pertinent physical exam findings:stable and in NAD, non-focal I have ordered the following:labs The patient will proceed to the ED for further evaluation.
[2019-06-29 20:34] VITALS: BMI 24.2
[2019-06-29] MEDS ORDERED: SODIUM CHLORIDE 0.9% 1000 ML INFUS.BAG IV ONE (21:22)
[2019-06-29] MEDS ORDERED: ONDANSETRON 4 MG/2 ML VIAL IVPUSH ONE (21:22)
[2019-06-29] MEDS ORDERED: ACETAMINOPHEN 1000 MG/100 ML VIAL (NON FORMULARY) IVPB ONE (21:22)
[2019-06-29] MEDS ORDERED: FAMOTIDINE 20 MG/50 ML IVPB 20 MG/50 ML MG IVPB ONE ×2 (21:22→21:55)
--- NOTE | 2019-06-29 21:30 | PDOC ---
History of Present Illness - General Chief Complaint: Pain Stated Complaint: ABD/PAIN Time Seen by Provider: 06/29/19 20:30 History Source: Patient Exam Limitations: No Limitations Past History - Travel Traveled outside of the country in the last 30 days: No Close contact w/someone who was outside of country & ill: No - Past Medical History Allergies/Adverse Reactions: Allergies Allergy/AdvReac Type Severity Reaction Status Date / Time No Known Allergies Allergy Verified 06/30/19 01:18 Home Medications: Ambulatory Orders Albuterol Sulfate Inhaler - [Ventolin HFA Inhaler -] 2 inh PO Q6H PRN 06/25/19 Acetaminophen [Tylenol .Regular Strength -] 500 mg PO Q6H PRN #0 tab 06/26/19 Ibuprofen [Motrin -] 600 mg PO Q6H tablet 06/26/19 Asthma: Yes COPD: No - Immunization History Immunization Up to Date: Yes - Suicide/Smoking/Psychosocial Hx Smoking History: Never smoked Have you smoked in the past 12 months: No Hx Alcohol Use: Yes (rarely) Drug/Substance Use Hx: No Substance Use Type: None Review of Systems - Review of Systems Able to Perform ROS?: Yes Comments:: 06/29/19 22:53 CONSTITUTIONAL: Absent: fever, chills, diaphoresis, generalized weakness, malaise, loss of appetite HEENT: Absent: rhinorrhea, nasal congestion, throat pain, throat swelling, difficulty swallowing, mouth swelling, ear pain, eye pain, visual Changes CARDIOVASCULAR: Absent: chest pain, loss of consciousness, palpitations, irregular heart rate, peripheral edema RESPIRATORY: Absent: cough, shortness of breath, dyspnea with exertion, orthopnea, wheezing, stridor, hemoptysis GASTROINTESTINAL: Present: abdominal pain Absent: abdominal distension, nausea, vomiting, diarrhea , constipation, melena, hematochezia GENITOURINARY: Absent: dysuria, frequency, urgency, hesitancy, hematuria, flank pain, genital pain MUSCULOSKELETAL: Absent: myalgia, arthralgia, joint swelling SKIN: Absent: rash, itching, pallor HEMATOLOGIC/IMMUNOLOGIC: Absent: easy bleeding, easy bruising, lymphadenopathy, frequent infections ENDOCRINE: Absent: unexplained weight gain, unexplained weight loss, heat intolerance, cold intolerance NEUROLOGIC: Absent: headache, focal weakness or paresthesias, dizziness, unsteady gait, seizure, mental status changes, bladder or bowel incontinence PSYCHIATRIC: Absent: anxiety, depression, suicidal or homicidal ideation, hallucinations. Is the patient limited Omani proficient: No *Physical Exam - Vital Signs Last Vital Signs Temp Pulse Resp BP Pulse Ox 98.4 F 73 81 H 159/93 99 06/29/19 20:30 06/29/19 20:30 06/29/19 20:30 06/29/19 20:30 06/29/19 20:30 - Physical Exam Comments: 06/29/19 22:53 GENERAL: Well developed, well nourished. Awake and alert. No acute distress. HEENT: Normocephalic, atraumatic. PERRLA, EOMI. No conjunctival pallor. Sclera are non- icteric. Moist mucous membranes. Oropharynx is clear. NECK: Supple. Full ROM. No JVD. Carotid pulses 2+ and symmetric, without bruits. No thyromegaly. No lymphadenopathy. CARDIOVASCULAR: Regular rate and rhythm. No murmurs, rubs, or gallops. Distal pulses are 2+ and symmetric. PULMONARY: No evidence of respiratory distress. Lungs clear to auscultation bilaterally. No wheezing, rales or rhonchi. ABDOMINAL: TTP of the RLQ with (+) rovsing sign, psoas sign. Soft. Non-distended. No guarding. No organomegaly. Normoactive bowel sounds. MUSCULOSKELETAL Normal range of motion at all joints. No bony deformities or tenderness. No CVA tenderness. EXTREMITIES: No cyanosis. No clubbing. No edema. No calf tenderness. SKIN: Warm and dry. Normal capillary refill. No rashes. No jaundice. NEUROLOGICAL: Alert, awake, appropriate. Cranial nerves 2-12 intact. No deficits to light touch and temperature in face, upper extremities and lower extremities. No motor deficits in the in face, upper extremities and lower extremities. Normoreflexic in the upper and lower extremities. Normal speech. Toes are down- going bilaterally. Gait is normal without ataxia. PSYCHIATRIC: Cooperative. Good eye contact. Appropriate mood and affect. ED Treatment Course - LABORATORY CBC & Chemistry Diagram: 06/29/19 22:10 06/29/19 22:10 Medical Decision Making - Medical Decision Making 06/30/19 01:29 The patient is a 23 y/o M with PMH of appendectomy on 06/25/19, who presents to the ER with RLQ pain since this morning. The patent states that he pain came on gradually and got worse over the course of the day. The pain is located over the appendectomy site. He states he took 400mg of Motrin at 3pm with little relief of symptoms. States he had a normal bowel movement at 3pm. Last ate this morning at breakfast, but has been nauseous through out the day. denies fevers, chills, vomiting, urinary symptoms, chest pain and SOB. Denies heavy lifting or strenuous activity 06/30/19 01:56 Basic labs, CTAB ordered IVF, Zofran, Pepcid Ofirmev for symptomatic relief VSS, afebrile at this time. Spoke with Dr. Jay regarding the CT results Most likely just post op changes given 4 days s/p surgery, no obvious abscess formed Pain likely from lack of OTC Tylenol and Motrin Leukocytosis 10.6, however, could be resolving. Repeat abdominal exam with less pain over the RLQ after ofirmev. Plan to DC home with appropriate pain medication and f/u with Dr. Jay as planned. Strict return precautions given *DC/Admit/Observation/Transfer Diagnosis at time of Disposition: RLQ abdominal pain - Discharge Dispostion Disposition: HOME Condition at time of disposition: Stable Decision to Admit order: No - Referrals Referrals: Ang Jay MD [Staff Physician] - - Patient Instructions Printed Discharge Instructions: DI for an Appendectomy Additional Instructions: You are most likely experiencing pain from the appendectomy It is unlikely you have an abscess (infection) at this time. Take the Tylenol 650mg every 4 hours for pain. Take the Motrin 600mg every 6 hours for pain. Drink plenty of fluids and eat a bland diet Keep your follow up with Dr. Jay for Thursday Return to the ER for increasing pain despite pain medication, fever, vomiting, diarrhea, or if you have any changes in your symptoms - Post Discharge Activity Forms/Work/School Notes: Back to Work
[2019-06-29] MEDS ORDERED: ACETAMINOPHEN INJECTION 100 ML IVPB ONE (21:54)
[2019-06-29] MEDS ORDERED: ONDANSETRON 4 MG/2 ML VIAL ONE (21:54)
[2019-06-29 22:25] LABS: BASO % 0.3 % (0-2.0); EOS % 0.5 % (0-4.5); HEMATOCRIT 40.2 % (35.4-49); HEMOGLOBIN 13.4 GM/dL (11.7-16.9); LYMPH % 16.8 % (8-40); MCH 30.4 pg (25.7-33.7); MCHC 33.3 g/dl (32.0-35.9); MEAN CELL VOLUME 91.4 fl (80-96); MONO % 7.5 % (3.8-10.2); NEUT % 74.9 % (42.8-82.8); PLATELET COUNT 263 K/MM3 (134-434); RDW 13.2 % (11.9-15.9); WHITE BLOOD COUNT 10.6 K/mm3 (4.0-10.0)
[2019-06-29 22:27] LABS: URINE APPEARANCE CLEAR; URINE BILIRUBIN NEGATIVE (NEGATIVE); URINE COLOR YELLOW; URINE GLUCOSE (UA) NEGATIVE (NEGATIVE); URINE KETONE NEGATIVE (NEGATIVE); URINE LEUK ESTERASE NEGATIVE (NEGATIVE); URINE NITRITE NEGATIVE (NEGATIVE); URINE PROTEIN NEGATIVE (NEGATIVE); URINE UROBILINOGEN 0.2 mg/dL (0.2-1.0)
[2019-06-29 22:47] LABS: ALBUMIN 3.9 g/dl (3.4-5.0); BILIRUBIN,TOTAL 0.4 mg/dL (0.2-1); BLOOD UREA NITROGEN 12.2 mg/dL (7-18); CALCIUM 9.3 mg/dL (8.5-10.1); CREATININE 0.8 mg/dL (0.55-1.3); POTASSIUM 3.6 mmol/L (3.5-5.1); TOT PROT 7.7 g/dl (6.4-8.2)
[2019-06-30] MEDS ORDERED: PIPERACILLIN/TAZOB 3.375 GM 3.375 GM in DEXTROSE 5%-WATER - 50 ML IVPB ONE (01:27)
[2019-06-30] MEDS ORDERED: SODIUM CHLORIDE 1,000 ML IV STA ×2 (01:33→01:34)
[2019-06-30] MEDS ORDERED: PIPERACILLIN/TAZOB 3.375 GM 3.375 GM/50 ML BAG IVPB ONE (01:50)
[2019-06-30 02:24] VITALS: BP 127/80; PULSE 74; TEMP 98.6
== END 2019-06-30 02:39 | disposition home or self-care (01) ==
LOC: JER 20:07
PROC: 3E0337Z Introduction of Electrolytic and Water Balance Substance into Peripheral Vein, Percutaneous Approach (ICD-10-PCS; principal; 2019-06-29)
PROC: 3E033GC Introduction of Other Therapeutic Substance into Peripheral Vein, Percutaneous Approach (ICD-10-PCS; 2019-06-29)
PROC: 3E03329 Introduction of Other Anti-infective into Peripheral Vein, Percutaneous Approach (ICD-10-PCS; 2019-06-29)
PROC: 3E033GC Introduction of Other Therapeutic Substance into Peripheral Vein, Percutaneous Approach (ICD-10-PCS; 2019-06-29)
PROC: 3E033NZ Introduction of Analgesics, Hypnotics, Sedatives into Peripheral Vein, Percutaneous Approach (ICD-10-PCS; 2019-06-29)
DX: G89.18 Other acute postprocedural pain (principal); R10.31 Right lower quadrant pain; Z90.49 Acquired absence of other specified parts of digestive tract
CPT/HCPCS: 36415; 74177-TC; 80053; 81003; 85025; 87086; 99283-25; J0131; J7030

== ENCOUNTER 2020-11-19 12:21 | Emergency (ER) | payer OTHER ==
[2020-11-19 12:42] VITALS: BP 146/89; PULSE 77; TEMP 98.4; BMI 25.8
[2020-11-19 14:04] LABS: INR 1.09 (0.83-1.09); PROTHROMBIN TIME (PATIENT) 13.1 SEC (9.7-13.0)
[2020-11-19 14:18] LABS: ALBUMIN 4.3 g/dl (3.4-5.0); BLOOD UREA NITROGEN 10.3 mg/dL (7-18); CALCIUM 9.1 mg/dL (8.5-10.1)
[2020-11-19 14:22] LABS: CREATININE 0.9 mg/dL (0.55-1.3)
[2020-11-19 14:23] LABS: BILIRUBIN,TOTAL 0.4 mg/dL (0.2-1); TOT PROT 8.4 g/dl (6.4-8.2)
[2020-11-19 14:24] LABS: POTASSIUM 4.7 mmol/L (3.5-5.1)
[2020-11-19 14:30] LABS: BASO % 0.3 % (0-2.0); EOS % 0.3 % (0-4.5); HEMATOCRIT 46.8 % (35.4-49); HEMOGLOBIN 15.7 GM/dL (11.7-16.9); LYMPH % 21.5 % (8-40); MCH 30.8 pg (25.7-33.7); MCHC 33.5 g/dl (32.0-35.9); MEAN CELL VOLUME 91.9 fl (80-96); MEAN PLT VOLUME 9.5 fl (7.5-11.1); MONO % 5.8 % (3.8-10.2); NEUT % 72.1 % (42.8-82.8); PLATELET COUNT 260 K/MM3 (134-434); RBC 5.09 M/mm3 (4.00-5.60); RDW 13.3 % (11.9-15.9); WHITE BLOOD COUNT 8.4 K/mm3 (4.0-10.0)
[2020-11-19] MEDS ORDERED: KETOROLAC TROMETHAMINE 30 MG/1 ML VIAL IVPUSH ONE (17:10)
[2020-11-19] MEDS ORDERED: KETOROLAC TROMETHAMINE 30 MG/1 ML VIAL ONE (17:16)
[2020-11-19 19:44] LABS: URINE APPEARANCE CLEAR; URINE BILIRUBIN NEGATIVE (NEGATIVE); URINE COLOR YELLOW; URINE GLUCOSE (UA) NEGATIVE (NEGATIVE); URINE KETONE NEGATIVE (NEGATIVE)
[2020-11-19 19:45] LABS: EPI CELLS 3.3 /uL (0-25.1); HYALINE CASTS 0.12 /uL (0-3.1); PH,URINE 6.5 (5.0-8.0); URINE BACTERIA 42 /uL (0-1359); URINE LEUK ESTERASE NRGATIVE (NEGATIVE); URINE NITRITE NEGATIVE (NEGATIVE); URINE PROTEIN NEGATIVE (NEGATIVE); URINE RBC 5.6 /uL (0-23.9); URINE UROBILINOGEN 0.2 mg/dL (0.2-1.0); URINE WBC 1.9 /uL (0-25.8)
== END 2020-11-19 20:16 | disposition home or self-care (01) ==
LOC: JER 12:21
PROC: 3E0333Z Introduction of Anti-inflammatory into Peripheral Vein, Percutaneous Approach (ICD-10-PCS; principal; 2020-11-19)
DX: R10.32 Left lower quadrant pain (principal)
CPT/HCPCS: 36415; 74177-TC; 80053; 81003; 85025; 85610; 99285-25; Q9967

== ENCOUNTER 2021-01-26 06:58 | Emergency (ER) | payer OTHER ==
[2021-01-26 07:27] VITALS: BP 136/79; PULSE 89; TEMP 98.2; BMI 29.0
[2021-01-27 10:09] LABS: SARS-CoV-2 NAA Not Detected (Not Detected)
== END 2021-01-26 09:17 | disposition home or self-care (01) ==
LOC: JER 06:58
DX: J06.9 Acute upper respiratory infection, unspecified (principal); Z11.52 Encounter for screening for COVID-19
CPT/HCPCS: 99283-25; C9803; U0003; U0005